=== PATIENT | female | born 2000 | race African-American/Black ===

== ENCOUNTER 2020-03-19 22:17 | Emergency (ER) | payer OTHER ==
[2020-03-20 19:57] LABS: SARS-CoV-2 PCR by NAA Not Detected (NotDetected)
== END 2020-03-19 22:53 ==
LOC: MADERS 22:17
DX: Z20.822 Contact with and (suspected) exposure to COVID-19 (principal)
CPT/HCPCS: 87635; 99283; U0003; U0005